=== PATIENT | male | born 1960 | race African-American/Black ===

== ENCOUNTER → 2017-03-18 | Outpatient (CLI) | payer BC ==
[2014-12-05 08:25] VITALS: BP 143/77
== END ==
LOC: RT 09:43
PROVIDERS: ATTEND Psychiatry & Neurology Neurology
DX: M25.561 Pain in right knee (principal)
CPT/HCPCS: 95909

== ENCOUNTER 2017-05-30 01:44 | Emergency (ER) | payer BC ==
[2017-05-30] MEDS ORDERED: NS 1000 ML 3,000 ML ONE (01:47)
[2017-05-30] MEDS: NS 1000 ML 1,000 ML IV PRN ×3 (02:00→02:10)
[2017-05-30] MEDS ORDERED: NS 100 ML IV 100 ML IV ONE (02:05)
[2017-05-30 02:07] LABS: BILIRUBIN,URINE NEGATIVE (NEGATIVE); BLOOD/HEMOGLOBIN,URINE 2+ (NEGATIVE); GLUCOSE, URINE NEGATIVE (NEGATIVE); KETONES,URINE NEGATIVE (NEGATIVE); LEUKOCYTE ESTERASE ,URINE 1+ (NEGATIVE); NITRITES,URINE NEGATIVE (NEGATIVE); PROTEIN,URINE 2+ (NEGATIVE); UROBILINOGEN,URINE 1+ (NORMAL)
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
[2017-05-30 02:29] LABS: AMORPHOUS SEDIMENT,UR TRACE /HPF (NEGATIVE); APPEARANCE,URINE HAZY (CLEAR); BACTERIA,URINE NEGATIVE /HPF (NEGATIVE); COLOR,URINE YELLOW (YELLOW); RBC,URINE 0-3 /HPF (NEGATIVE); SQUAMOUS EPITHELIAL CELL,UR FEW /HPF (NEGATIVE)
[2017-05-30] MEDS ORDERED: ALBUMIN HUMAN 25%- 100ML 100 ML IV ONE ×2 (02:31→03:00)
[2017-05-30 02:35] LABS: BASOPHILS % (AUTO) 0.6 % (0.2-1.0); EOSINOPHILS # (AUTO) 0.1 x10^3/uL (0.0-0.2); EOSINOPHILS % (AUTO) 1.9 % (0.9-2.9); HEMATOCRIT 26.8 % (42.0-54.0); HEMOGLOBIN 9.1 g/dL (13.5-18.0); LYMPHOCYTES # (AUTO) 2.5 X10^3/uL (1.3-2.9); MEAN CORPUSCULAR HEMOGLOBIN 29.4 pg (27.0-34.0); MEAN CORPUSCULAR VOLUME 86.4 fL (80.0-100.0); MEAN PLATELET VOLUME 8.5 fL (7.4-11.0); MONOCYTES # (AUTO) 0.4 x10^3/uL (0.3-0.8); MONOCYTES % (AUTO) 5.8 % (0.0-13.0); NEUTROPHILS # (AUTO) 4.3 x10^3/uL (2.2-4.8); NEUTROPHILS % (AUTO) 57.7 % (42.0-75.0); PLATELET COUNT 173 X10^3/uL (150.0-450.0); RED CELL DISTRIBUTION WIDTH 14.5 % (11.6-16.5); WHITE BLOOD COUNT 7.5 X10^3/uL (3.6-10.0)
[2017-05-30 02:38] LABS: CALCIUM 7.4 mg/dL (8.5-10.1); CARBON DIOXIDE 18.2 mmol/L (21-32); CREATININE 1.65 mg/dL (0.70-1.30)
[2017-05-30 02:40] VITALS: BMI 33.3
[2017-05-30 02:42] LABS: ALBUMIN 2.5 g/dL (3.4-5.0); COR CA(FOR HYPOALB) 8.6 mg/dL (8.5-10.1); TOTAL PROTEIN 5.1 g/dL (6.4-8.2)
[2017-05-30] MEDS ORDERED: ALBUMIN IV SCH (03:00)
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
[2017-05-30] MEDS ORDERED: XYLOCAINE 2% and EPINEPHRINE 1:100,000 ONE (03:35)
[2017-05-30] MEDS ORDERED: STERILE WATER IRRIGATION IR ONE (03:37)
[2017-05-30] MEDS ORDERED: MORPHINE SULFATE INJ 4 MG IVP ONE (04:00)
[2017-05-30] MEDS ORDERED: K-DUR TAB 20 MEQ PO ONE ×2 (04:09→04:12)
--- NOTE | 2017-05-30 04:49 | RAD ---
AP Chest Indication: Chest tube placement Comparison: None available Findings: Nasogastric tube is noted in expected positioning with its tip below the diaphragm. The left-sided th oracostomy tube is difficult to visualize the tip. Consider repeat radiographic evaluation. The trachea is midline. The cardiac silhouette is unremarkable. there is mild increased bilateral p eribronchial thickening which may be secondary to vascular crowding versus developing interstitial pn eumonitis. The bony thorax is unremarkable. IMPRESSION: See above. Reported By:
[2017-05-30 04:59] VITALS: BP 168/74
[2017-05-30 10:47] LABS: ABG ALLEN TEST POS; ABG BASE EXCESS -4.7 mmol/L (-2.0-2.0); ABG HCO3 20.4 mmol/L (22-26)
== END 2017-05-30 05:00 | disposition short-term general hospital (02) ==
LOC: ER 01:44
DX: S21.112A Laceration without foreign body of left front wall of thorax without penetration into thoracic cavity, initial encounter (principal); J93.9 Pneumothorax, unspecified; E87.6 Hypokalemia; Y08.89XA Assault by other specified means, initial encounter; Y92.9 Unspecified place or not applicable
CPT/HCPCS: 36415; 36600; 51702; 71010; 71260; 74177; 80053; 80307; 81001; 82803; 85025; 86901; 93005; 93010; 96365; 96367; 96374; 96375; 99284; 99291; 99292; A4217; A4222; P9045; P9047; G0434; J2001; J2270

== ENCOUNTER 2017-11-25 11:59 | Emergency (ER) | payer BC ==
[2017-11-25 12:09] VITALS: BP 113/65; BMI 30.4
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
[2017-11-25 12:52] LABS: BASOPHILS % (AUTO) 0.6 % (0.2-1.0); HEMATOCRIT 37.9 % (42.0-54.0); HEMOGLOBIN 12.8 g/dL (13.5-18.0); LYMPHOCYTES # (AUTO) 0.8 X10^3/uL (1.3-2.9); LYMPHOCYTES % (AUTO) 37.4 % (21.0-51.0); MEAN CORPUSCULAR HEMOGLOBIN 26.9 pg (27.0-34.0); MEAN CORPUSCULAR HGB CONC 33.9 g/dL (33.0-35.0); MEAN CORPUSCULAR VOLUME 79.4 fL (80.0-100.0); MEAN PLATELET VOLUME 7.7 fL (7.4-11.0); MONOCYTES # (AUTO) 0.2 x10^3/uL (0.3-0.8); MONOCYTES % (AUTO) 9.5 % (0.0-13.0); NEUTROPHILS # (AUTO) 1.1 x10^3/uL (2.2-4.8); NEUTROPHILS % (AUTO) 52.5 % (42.0-75.0); PLATELET COUNT 148 X10^3/uL (150.0-450.0); RED BLOOD COUNT 4.77 X10^6/uL (4.7-6.0); RED CELL DISTRIBUTION WIDTH 18.6 % (11.6-16.5); WHITE BLOOD COUNT 2.2 X10^3/uL (3.6-10.0)
[2017-11-25 13:03] LABS: ALANINE AMINOTRANSFERASE 24 Units/L (12-78); ALBUMIN 3.3 g/dL (3.4-5.0); ALKALINE PHOSPHATASE 82 Units/L (46-116); ASPARTATE AMINO TRANSFERASE 32 Units/L (15-37); BLOOD UREA NITROGEN 20 mg/dL (7-18); CALCIUM 8.4 mg/dL (8.5-10.1); CHLORIDE 101 mmol/L (98-107); CREATININE 1.46 mg/dL (0.70-1.30); SODIUM 134 mmol/L (136-145); TOTAL PROTEIN 7.9 g/dL (6.4-8.2); eGFR BLACK RACES > 60 (>60); eGFR NON BLACK RACES 53 (>60)
[2017-11-25 13:12] LABS: PLATELET MORPHOLOGY COMMENT NORMAL (NORMAL)
== END 2017-11-25 14:08 | disposition home or self-care (01) ==
LOC: ER 12:14
DX: J10.1 Influenza due to other identified influenza virus with other respiratory manifestations (principal)
CPT/HCPCS: 36415; 80053; 85025; 87502; 87651; 99282

== ENCOUNTER 2021-08-09 03:08 | Observation (INO) ==
[2021-08-09 03:24] VITALS: BMI 30.6
--- NOTE | 2021-08-09 03:32 | DR.SOBA ---
HPI Time Seen Time Seen by Provider: 08/09/21 03:28 Primary Care Physician Primary Care Physician: Cherri ward HPI Comment HPI Comment: Cough, congestion and sob for the past week; acutely worsened tonight; has a "sore spot" in center of chest but denies other cp; no fever, chills; he has had both covid vaccines; he smokes 2ppd and denies h/o heart disease but was recently referred to behavioral sciences instructor after a bout with what "they thought was a heart attack; he's taking medications as written; no abd pain, n/v/d. Complaints Chief Complaint:: pt stated he has been short a breath for about a week an tonig ht it started getting worse. Source History Provided: Patient Mode of Arrival Mode of Arrival: Ambulatory Timing Onset of Chief Complaint: 08/05/21 PMH PMH Past Medical History: Yes Past Medical History: Hypertension Past Surgical History: Yes Surgical History: Appendectomy Past Surgical History Comment: colon repair Family History History of Family Medical Conditions: Yes Family Medical History: Diabetes Mellitus and Hypertension Social History Do you use any recreational Drugs:: No Lives With: Spouse Lives Where: Home Infectious screening In the last 2 months have you had wt loss of >10#?: NO Have you had fever, night sweats or hemotysis?: No Have you traveled outside the country in the last 6 months?: No Isolation: Standard ROS Review of Systems Constitutional: No Symptoms Reported Eyes: No Symptoms Reported ENTM: No Symptoms Reported Gastrointestinal/Abdominal: No Symptoms Reported Genitourinary: No Symptoms Reported Neurological: No Symptoms Reported Musculoskeletal: No Symptoms Reported Integumentary: No Symptoms Reported Hematologic/Lymphatic: No Symptoms Reported Endocrine: No Symptoms Reported Psychiatric: No Symptoms Reported PE Vital Signs Vitals: Temperature 97.7 F Pulse Rate [Left Brachial] 94 Pulse Rate 85 Respiratory Rate 25 Blood Pressure [Right Arm] 141/77 Blood Pressure 158/74 O2 Sat by Pulse Oximetry 98 General Limitations: No Limitations General Appearance: Alert and In No Apparent Distress Head Head Exam: Normal Inspection Eyes Eye exam: Normal Appearance ENT ENT Exam: Normal Exam Neck Neck Exam: Normal Inspection Chest Chest Inspection: Normal Inspection and Tenderness (over xyphoid process) Respiratory Respiratory Exam: Normal Lung Sounds Bilat Respiratory Exam: Bilateral: Rales, Left: Rales, Right: Rales and Lower: Rales Cardiovascular Cardiovascular Exam: Regular Rate and Normal Rhythm Abdominal Exam Abdominal Exam: Normal Inspection, Normal Bowel Sounds and Soft Extremities Extremities Exam: Normal Inspection Back Back Exam: Normal Inspection Neurologic Neurological Exam: Alert and Oriented X3 Psychiatric Psychiatric Exam: Normal Affect and Normal Mood Skin Skin Exam: Warm, Dry, Intact and Normal Color COURSE Treatment Treatment: 0700 out 2550 cc with lasix, sleeping soundly, wakes partially; says feeling better Critical Care Notes Total Time (mins): 30 Critical Diagnosis: chf, mult pvc, st, hypoxia, high d-dimer, hypokalemia, uncontrolled htn Critical Interventions: oxygen, lasix, strict I/Os discussion with pt and pcp results of labs/xray and need for admission admission for diuresis ROR Labs Reviewed Laboratory Results Reviewed?: Yes Result Diagrams: 08/09/21 03:41 08/09/21 03:41 Laboratory: WBC 6.8 X10^3/uL (3.6-10.0) 08/09/21 03:41 RBC 4.08 X10^6/uL (4.7-6.0) L 08/09/21 03:41 Hgb 11.9 g/dL (13.5-18.0) L 08/09/21 03:41 Hct 35.2 % (42.0-54.0) L 08/09/21 03:41 MCV 86.3 fL (80.0-100.0) 08/09/21 03:41 MCH 29.0 pg (27.0-34.0) 08/09/21 03:41 MCHC 33.6 g/dL (33.0-35.0) 08/09/21 03:41 RDW 15.0 % (11.6-16.5) 08/09/21 03:41 Plt Count 239 X10^3/uL (150.0-450.0) 08/09/21 03:41 MPV 8.9 fL (7.4-11.0) 08/09/21 03:41 Neut % (Auto) 69.2 % (42.0-75.0) 08/09/21 03:41 Lymph % (Auto) 21.9 % (21.0-51.0) 08/09/21 03:41 [place] % (Auto) 6.8 % (0.0-13.0) 08/09/21 03:41 Eos % (Auto) 0.9 % (0.9-2.9) 08/09/21 03:41 Baso % (Auto) 1.2 % (0.2-1.0) H 08/09/21 03:41 Neut # (Auto) 4.7 x10^3/uL (2.2-4.8) 08/09/21 03:41 Lymph # (Auto) 1.5 X10^3/uL (1.3-2.9) 08/09/21 03:41 [place] # (Auto) 0.5 x10^3/uL (0.3-0.8) 08/09/21 03:41 Eos # (Auto) 0.1 x10^3/uL (0.0-0.2) 08/09/21 03:41 Baso # (Auto) 0.1 X10^3/uL (0.0-0.1) 08/09/21 03:41 Absolute Nucleated RBC 0.2 /100WBC 08/09/21 03:41 D-Dimer 1.66 ug/ml (0.0-0.57) H* 08/09/21 03:41 Sample Site Rrad 08/09/21 03:49 ABG pH 7.460 (7.35-7.45) H 08/09/21 03:49 ABG pCO2 37.0 mmHg (35.0-45.0) 08/09/21 03:49 ABG pO2 63.0 mmHg (80.0-100.0) L 08/09/21 03:49 ABG HCO3 26.3 mmol/L (22-26) H 08/09/21 03:49 ABG O2 Saturation 93.0 % (90-100) 08/09/21 03:49 ABG Base Excess 2.5 mmol/L (-2.0-2.0) H 08/09/21 03:49 Pankaj Test Pos 08/09/21 03:49 A-a Gradient 40.0 mmHg 08/09/21 03:49 FiO2 21.0 08/09/21 03:49 Blood Gas Comments Tory well ms 08/09/21 03:49 Sodium 143 mmol/L (136-145) 08/09/21 03:41 Corrected Sodium TNP 08/09/21 03:41 Potassium 3.2 mmol/L (3.5-5.1) L 08/09/21 03:41 Chloride 108 mmol/L (98-107) H 08/09/21 03:41 Carbon Dioxide 25.8 mmol/L (21-32) 08/09/21 03:41 BUN 9 mg/dL (7-18) 08/09/21 03:41 Creatinine 1.05 mg/dL (0.70-1.30) 08/09/21 03:41 Est GFR (MDRD) Af Amer > 60 (>60) 08/09/21 03:41 Est GFR (MDRD) Non-Af > 60 (>60) 08/09/21 03:41 Glucose 100 mg/dL (65-99) H 08/09/21 03:41 Calcium 8.4 mg/dL (8.5-10.1) L 08/09/21 03:41 Corrected Calcium TNP 08/09/21 03:41 Total Bilirubin 0.60 mg/dL (0.2-1.0) 08/09/21 03:41 AST 22 Units/L (15-37) 08/09/21 03:41 ALT 25 Units/L (12-78) 08/09/21 03:41 Alkaline Phosphatase 86 Units/L (46-116) 08/09/21 03:41 Creatine Kinase 147 Units/L (39-308) 08/09/21 03:41 CK-MB (CK-2) 1.1 ng/mL (0-4.0) 08/09/21 03:41 CK/CKMB % Calc 0.8 % (<4) 08/09/21 03:41 Troponin I 0.04 ng/mL (0-1.5) 08/09/21 03:41 B-Natriuretic Peptide 1490 pg/mL (0-79) H* 08/09/21 03:41 Total Protein 7.6 g/dL (6.4-8.2) 08/09/21 03:41 Albumin 3.4 g/dL (3.4-5.0) 08/09/21 03:41 Globulin 4.2 g/dL (2.5-4.5) 08/09/21 03:41 Albumin/Globulin Ratio 0.8 Ratio (1.1-2.1) L 08/09/21 03:41 SARS CoV-2 RNA Rapid STEPHANIE Negative (NEGATIVE) 08/09/21 04:20 XRAY XRAY Interpreted by: Radiologist X-ray Results: pcxr: Congestive heart failure. Opioid Opioid Risk Tool Age (David box if 16-45): No History of Preadolescent Sexual Abuse: No Total: 0 Total Score Risk Category: Low Risk Copyright: Payne LR predicting aberrant behaviors Diagnosis Discharge Problem: Hypoxia, Hypokalemia, Frequent PVCs CHF (congestive heart failure) Qualifiers: Heart failure type: unspecified Heart failure chronicity: acute Qualified Code(s): I50.9 - Heart failure, unspecified Hypertension Qualifiers: Hypertension type: primary hypertension Qualified Code(s): I10 - Essential (primary) hypertension Instructions Instructions: Hypoxia Forms: [facility] Patient [facility] Social Distancing
--- NOTE | 2021-08-09 03:48 | RAD ---
PROCEDURE: Chest X-ray 1 View .HISTORY: Dyspnea for 1 week.TECHNIQUE: AP view .COMPARISON: 06/11/2021.TECHNICAL QUALITY: Satisfactory .FINDINGS:Unchanged cardiomegaly.Increased central vascularity.Some edema in both mid lower lung martinez with no pleural fluid.IMPRESSION:Congestive heart failure.Electronically signed by: Olman Patel (Aug 09, 2021 03:46:32)
[2021-08-09 03:51] LABS: ABG ALLEN TEST POS; ABG BASE EXCESS 2.5 mmol/L (-2.0-2.0); ABG HCO3 26.3 mmol/L (22-26)
[2021-08-09] MEDS ORDERED: LASIX IVP ONE ×3 (04:03→07:48)
[2021-08-09 04:23] LABS: ALANINE AMINOTRANSFERASE 25 Units/L (12-78); ALBUMIN 3.4 g/dL (3.4-5.0); ALKALINE PHOSPHATASE 86 Units/L (46-116); ASPARTATE AMINO TRANSFERASE 22 Units/L (15-37); BLOOD UREA NITROGEN 9 mg/dL (7-18); CALCIUM 8.4 mg/dL (8.5-10.1); CARBON DIOXIDE 25.8 mmol/L (21-32); CHLORIDE 108 mmol/L (98-107); CKMB % 0.8 % (<4); CREATINE KINASE 147 Units/L (39-308); CREATINE KINASE MB 1.1 ng/mL (0-4.0); CREATININE 1.05 mg/dL (0.70-1.30); SODIUM 143 mmol/L (136-145); TOTAL PROTEIN 7.6 g/dL (6.4-8.2); TROPONIN I 0.04 ng/mL (0-1.5); eGFR NON BLACK RACES > 60 (>60)
[2021-08-09 04:27] LABS: BASOPHILS # (AUTO) 0.1 X10^3/uL (0.0-0.1); BASOPHILS % (AUTO) 1.2 % (0.2-1.0); EOSINOPHILS # (AUTO) 0.1 x10^3/uL (0.0-0.2); EOSINOPHILS % (AUTO) 0.9 % (0.9-2.9); HEMATOCRIT 35.2 % (42.0-54.0); HEMOGLOBIN 11.9 g/dL (13.5-18.0); LYMPHOCYTES # (AUTO) 1.5 X10^3/uL (1.3-2.9); LYMPHOCYTES % (AUTO) 21.9 % (21.0-51.0); MEAN CORPUSCULAR HGB CONC 33.6 g/dL (33.0-35.0); MEAN CORPUSCULAR VOLUME 86.3 fL (80.0-100.0); MEAN PLATELET VOLUME 8.9 fL (7.4-11.0); MONOCYTES # (AUTO) 0.5 x10^3/uL (0.3-0.8); MONOCYTES % (AUTO) 6.8 % (0.0-13.0); NEUTROPHILS # (AUTO) 4.7 x10^3/uL (2.2-4.8); NEUTROPHILS % (AUTO) 69.2 % (42.0-75.0); PLATELET COUNT 239 X10^3/uL (150.0-450.0); RED BLOOD COUNT 4.08 X10^6/uL (4.7-6.0); WHITE BLOOD COUNT 6.8 X10^3/uL (3.6-10.0)
[2021-08-09] MEDS ORDERED: K-DUR TAB 20 MEQ PO STA (05:47)
[2021-08-09] MEDS ORDERED: K-DUR TAB 20 MEQ PO ONE ×2 (05:49→07:48)
[2021-08-09] MEDS: LASIX IVP SCH (07:59)
[2021-08-09] MEDS: K-DUR TAB 20 MEQ PO SCH (07:59)
[2021-08-09] MEDS ORDERED: TOPROL XL PO SCH (09:00)
--- NOTE | 2021-08-09 09:47 | CT ---
HISTORYHYPOXIA, PVC, TROUBLE BREATHINGSTUDYCTA CHESTCOMPARISONChest radiograph from same day.TECHNIQUECTA chest protocol with axial images from the thoracic inlet to upper abdomen with IV contrast. Sagittal and coronal reformats and MIP images were created. Automated exposure control was utilized.FINDINGSThe visualized thyroid gland appears benign. Mildly atherosclerotic normal caliber thoracic aorta. Pulmonary artery is normal in caliber centrally. No filling defect is identified to suggest pulmonary embolism. The heart is mildly enlarged. No pericardial effusion.No pathologic adenopathy in the thorax. 6.3 cm left upper pole renal cyst. No acute osseous abnormality. The trachea and mainstem bronchi appear patent. There are mild lower lung predominant ground-glass and interstitial opacities likely due to pulmonary edema. Small bilateral pleural effusions. No pneumothorax. 4 x 2 mm left upper lobe pulmonary nodule image 49 series 2. 3 x 2 mm right lower lobe pulmonary nodule image 86 series 5.IMPRESSIONNegative for PE. Mild cardiomegaly. Mild pulmonary edema pattern. Small pleural effusions.There are few less than 6 mm pulmonary nodules which can be followed up in 1 year patient is high risk.Electronically signed by: Daryl Sorensen (Aug 09, 2021 09:45:42)
--- NOTE | 2021-08-09 10:06 | DR.H&P ---
H&P History & Physical for Day of: H&P Date: 08/09/21 Chief Complaint Chief Complaint: Shortness of breath Cough, congestion Allergies Allergies Allergy/AdvReac Type Severity Reaction Status Date / Time No Known Drug Allergies Allergy Verified 09/06/19 09:27 History of Present Illness History of Present Illness: Pt is a 60 year old male past medical history of H ypertension, Hyperlipidemia, COPD, presenting after having cough, congestion, and shortness of breath for the past week. Denies fever, chills. Labs/imaging: Wbc 6.8, Hgb 11.9, Plt 239, Na 143, K 3.2, Creatinine 1.05, Glucose 100, D-dimer 1.66, ABG: pH 7.46, pCO2 37, pO2 63, HCO3 26, O2sat 93%, FiO2 21%, BNP 1490, Troponin 0.04, COVID-19 negative, CXR was obtained that revealed: Increased central vascularity. Some edema in both mid lower lung martinez with no pleural fluid. Due to elevated D-dimer CTA chest was obtained that revealed: Negative for PE. Mild cardiomegaly. Mild pulmonary edema pattern. Small pleural effusions. There are few less than 6 mm pulmonary nodules which can be followed up in 1 year patient is high risk. Pt was given IV lasix 40mg and has had good urine output of 2550 cc. Will treat CHF exacerbation with IV lasix 40mg daily. Pt has had Echo in 2019 with EF of 65%, will repeat Echo today. Replete potassium per protocol. Restart home medications. Will continue to monitor and follow up labs/imaging. Past Medical History Past Medical History: Hypertension Past Surgical History Surgical History: Appendectomy Family History Family Medical History: Diabetes Mellitus and Hypertension Social History Does patient currently use any type of tobacco product: Yes Have you used tobacco products in the last 12 months: Yes Type of Tobacco Use: Cigarettes Alcohol Use: None Drug Use: None Medications Home Medications: No Known Drug Allergies Allergy (Verified 09/06/19 09:27) CONTINUE taking the following medications aspirin [Aspir-81] 81 mg PO DAILY 08/09/21 [History] esomeprazole magnesium 20 mg PO DAILY 08/09/21 [History] fentanyl 25 mcg TRANSDERMAL Q3D 08/09/21 [History] furosemide 20 mg PO DAILY 08/09/21 [History] metoprolol succinate 25 mg PO DAILY 08/09/21 [History] tizanidine 2 mg PO QHS PRN 08/09/21 [History] tramadol 50 mg PO BID 08/09/21 [History] Labs Result Diagrams: 08/09/21 03:41 08/09/21 03:41 Labs: Laboratory WBC 6.8 X10^3/uL (3.6-10.0) 08/09/21 03:41 RBC 4.08 X10^6/uL (4.7-6.0) L 08/09/21 03:41 Hgb 11.9 g/dL (13.5-18.0) L 08/09/21 03:41 Hct 35.2 % (42.0-54.0) L 08/09/21 03:41 MCV 86.3 fL (80.0-100.0) 08/09/21 03:41 MCH 29.0 pg (27.0-34.0) 08/09/21 03:41 MCHC 33.6 g/dL (33.0-35.0) 08/09/21 03:41 RDW 15.0 % (11.6-16.5) 08/09/21 03:41 Plt Count 239 X10^3/uL (150.0-450.0) 08/09/21 03:41 MPV 8.9 fL (7.4-11.0) 08/09/21 03:41 Neut % (Auto) 69.2 % (42.0-75.0) 08/09/21 03:41 Lymph % (Auto) 21.9 % (21.0-51.0) 08/09/21 03:41 [place] % (Auto) 6.8 % (0.0-13.0) 08/09/21 03:41 Eos % (Auto) 0.9 % (0.9-2.9) 08/09/21 03:41 Baso % (Auto) 1.2 % (0.2-1.0) H 08/09/21 03:41 Neut # (Auto) 4.7 x10^3/uL (2.2-4.8) 08/09/21 03:41 Lymph # (Auto) 1.5 X10^3/uL (1.3-2.9) 08/09/21 03:41 [place] # (Auto) 0.5 x10^3/uL (0.3-0.8) 08/09/21 03:41 Eos # (Auto) 0.1 x10^3/uL (0.0-0.2) 08/09/21 03:41 Baso # (Auto) 0.1 X10^3/uL (0.0-0.1) 08/09/21 03:41 Absolute Nucleated RBC 0.2 /100WBC 08/09/21 03:41 D-Dimer 1.66 ug/ml (0.0-0.57) H* 08/09/21 03:41 Sample Site Rrad 08/09/21 03:49 ABG pH 7.460 (7.35-7.45) H 08/09/21 03:49 ABG pCO2 37.0 mmHg (35.0-45.0) 08/09/21 03:49 ABG pO2 63.0 mmHg (80.0-100.0) L 08/09/21 03:49 ABG HCO3 26.3 mmol/L (22-26) H 08/09/21 03:49 ABG O2 Saturation 93.0 % (90-100) 08/09/21 03:49 ABG Base Excess 2.5 mmol/L (-2.0-2.0) H 08/09/21 03:49 Pankaj Test Pos 08/09/21 03:49 A-a Gradient 40.0 mmHg 08/09/21 03:49 FiO2 21.0 08/09/21 03:49 Blood Gas Comments Tory well ms 08/09/21 03:49 Sodium 143 mmol/L (136-145) 08/09/21 03:41 Corrected Sodium TNP 08/09/21 03:41 Potassium 3.2 mmol/L (3.5-5.1) L 08/09/21 03:41 Chloride 108 mmol/L (98-107) H 08/09/21 03:41 Carbon Dioxide 25.8 mmol/L (21-32) 08/09/21 03:41 BUN 9 mg/dL (7-18) 08/09/21 03:41 Creatinine 1.05 mg/dL (0.70-1.30) 08/09/21 03:41 Est GFR (MDRD) Af Amer > 60 (>60) 08/09/21 03:41 Est GFR (MDRD) Non-Af > 60 (>60) 08/09/21 03:41 Glucose 100 mg/dL (65-99) H 08/09/21 03:41 Calcium 8.4 mg/dL (8.5-10.1) L 08/09/21 03:41 Corrected Calcium TNP 08/09/21 03:41 Total Bilirubin 0.60 mg/dL (0.2-1.0) 08/09/21 03:41 AST 22 Units/L (15-37) 08/09/21 03:41 ALT 25 Units/L (12-78) 08/09/21 03:41 Alkaline Phosphatase 86 Units/L (46-116) 08/09/21 03:41 Creatine Kinase 147 Units/L (39-308) 08/09/21 03:41 CK-MB (CK-2) 1.1 ng/mL (0-4.0) 08/09/21 03:41 CK/CKMB % Calc 0.8 % (<4) 08/09/21 03:41 Troponin I 0.04 ng/mL (0-1.5) 08/09/21 03:41 B-Natriuretic Peptide 1490 pg/mL (0-79) H* 08/09/21 03:41 Total Protein 7.6 g/dL (6.4-8.2) 08/09/21 03:41 Albumin 3.4 g/dL (3.4-5.0) 08/09/21 03:41 Globulin 4.2 g/dL (2.5-4.5) 08/09/21 03:41 Albumin/Globulin Ratio 0.8 Ratio (1.1-2.1) L 08/09/21 03:41 SARS CoV-2 RNA Rapid STEPHANIE Negative (NEGATIVE) 08/09/21 04:20 Review of Systems Constitutional: Weakness; denies Fever and Chills Eyes: No Symptoms Reported ENT: No Symptoms Reported Respiratory: Cough and Shortness of Breath Cardiovascular: No Symptoms Reported Gastrointestinal: No Symptoms Reported Genitourinary: No Symptoms Reported Musculoskeletal: No Symptoms Reported Skin: No Symptoms Reported Neurological: No Symptoms Reported Physical Exam Vital Signs: Temperature 97.7 F Pulse Rate [Left Brachial] 94 Pulse Rate 96 Respiratory Rate 33 Blood Pressure [Right Arm] 141/77 Blood Pressure 134/95 O2 Sat by Pulse Oximetry 98 Oriented: Normal Eyes: Normal Ear: Normal Nose: Normal Throat: Normal Respiratory: Diminished Throughout and Rales Throughout Cardiovascular: Normal : Normal Auscultation: Bowel Sounds: Normal Palpation: Normal Tenderness: Normal Skin: Normal Musculoskeletal: Normal Psychiatric: Normal Mood Description: Calm and Appropriate Affect: Normal Speech Pattern: Clear and Appropriate Assessment/Plan (1) CHF exacerbation: Status: Acute Plan: IV lasix 40mg daily. Repeat Echo. Review H&P Reviewed: Yes Patient was examined?: Yes
[2021-08-09] MEDS ORDERED: NORCO 10/325 TAB PO PRN (11:22)
[2021-08-09] MEDS ORDERED: NexIUM PO SCH (11:30)
[2021-08-09] MEDS: ASPIRIN EC 81 MG PO SCH (11:46)
[2021-08-09] MEDS: TOPROL XL PO SCH (11:47)
[2021-08-09] MEDS ORDERED: VASOTEC TAB 20 MG ONE (12:00)
[2021-08-09] MEDS ORDERED: NORVASC TAB 10 MG ONE (12:00)
[2021-08-09] MEDS: NORVASC TAB 10 MG PO SCH (12:12)
[2021-08-09] MEDS: VASOTEC TAB 20 MG PO SCH (12:12)
[2021-08-09 13:04] LABS: BLOOD UREA NITROGEN 9 mg/dL (7-18); CALCIUM 9.2 mg/dL (8.5-10.1); CARBON DIOXIDE 30.5 mmol/L (21-32); CHLORIDE 105 mmol/L (98-107); CKMB % 0.6 % (<4); CREATINE KINASE 158 Units/L (39-308); CREATININE 1.18 mg/dL (0.70-1.30); MAGNESIUM 1.9 mg/dL (1.7-2.9); SODIUM 142 mmol/L (136-145); TROPONIN I 0.02 ng/mL (0-1.5); eGFR NON BLACK RACES > 60 (>60)
[2021-08-09] MEDS: NexIUM PO SCH (15:36)
[2021-08-09 18:56] LABS: CKMB % 0.6 % (<4); CREATINE KINASE 156 Units/L (39-308); CREATINE KINASE MB < 1.0 ng/mL (0-4.0); TROPONIN I < 0.02 ng/mL (0-1.5)
[2021-08-09] MEDS: COLACE CAP 100 MG PO SCH ×2 (20:04→20:48)
[2021-08-09] MEDS ORDERED: LIPITOR TAB 20 MG PO SCH (21:00)
[2021-08-10 05:21] LABS: BASOPHILS % (AUTO) 0.3 % (0.2-1.0); EOSINOPHILS # (AUTO) 0.1 x10^3/uL (0.0-0.2); EOSINOPHILS % (AUTO) 1.9 % (0.9-2.9); HEMATOCRIT 34.9 % (42.0-54.0); HEMOGLOBIN 11.7 g/dL (13.5-18.0); LYMPHOCYTES % (AUTO) 33.9 % (21.0-51.0); MEAN CORPUSCULAR HEMOGLOBIN 28.9 pg (27.0-34.0); MEAN CORPUSCULAR HGB CONC 33.7 g/dL (33.0-35.0); MEAN CORPUSCULAR VOLUME 85.7 fL (80.0-100.0); MEAN PLATELET VOLUME 9.3 fL (7.4-11.0); MONOCYTES # (AUTO) 0.4 x10^3/uL (0.3-0.8); MONOCYTES % (AUTO) 6.9 % (0.0-13.0); NEUTROPHILS # (AUTO) 3.4 x10^3/uL (2.2-4.8); PLATELET COUNT 247 X10^3/uL (150.0-450.0); RED BLOOD COUNT 4.07 X10^6/uL (4.7-6.0); RED CELL DISTRIBUTION WIDTH 15.1 % (11.6-16.5); WHITE BLOOD COUNT 5.9 X10^3/uL (3.6-10.0)
[2021-08-10 05:31] LABS: ALANINE AMINOTRANSFERASE 21 Units/L (12-78); ALBUMIN 2.9 g/dL (3.4-5.0); ALKALINE PHOSPHATASE 80 Units/L (46-116); ASPARTATE AMINO TRANSFERASE 18 Units/L (15-37); BLOOD UREA NITROGEN 12 mg/dL (7-18); CALCIUM 8.6 mg/dL (8.5-10.1); CARBON DIOXIDE 29.7 mmol/L (21-32); CHLORIDE 105 mmol/L (98-107); COR CA(FOR HYPOALB) 9.5 mg/dL (8.5-10.1); CREATININE 1.18 mg/dL (0.70-1.30); MAGNESIUM 1.8 mg/dL (1.7-2.9); SODIUM 143 mmol/L (136-145); eGFR NON BLACK RACES > 60 (>60)
[2021-08-10] MEDS ORDERED: POTASSIUM CHL 40 MEQ/NS 0.45% 500 ML IV PRN (05:51)
[2021-08-10] MEDS ORDERED: MICRO K EXTEN CAP 10 MEQ PO PRN (05:51)
[2021-08-10] MEDS ORDERED: POTASSIUM CHL 60 MEQ/NS 0.45% 500 ML IV PRN (05:51)
[2021-08-10] MEDS ORDERED: K-RIDER 10 MEQ/NS 100 ML 10 MEQ/100 ML BAG IV PRN (05:51)
[2021-08-10] MEDS ORDERED: K-DUR TAB 20 MEQ PO PRN (05:51)
[2021-08-10] MEDS ORDERED: POTASSIUM CHLORIDE LIQ 20 MEQ UDC PO PRN (05:51)
[2021-08-10] MEDS ORDERED: KLOR-CON PO PRN (05:51)
[2021-08-10] MEDS ORDERED: MAGNESIUM SULFATE 1 GRAM/100 mL PREMIX 1 G/100 ML BAG IV ONE (06:02)
[2021-08-10] MEDS: MAGNESIUM SULFATE 1 GRAM/100 mL PREMIX 1 G/100 ML BAG IV PRN ×2 (06:12→08:10)
[2021-08-10] MEDS: TOPROL XL PO SCH (09:35)
[2021-08-10] MEDS: K-DUR TAB 20 MEQ PO SCH (09:35)
[2021-08-10] MEDS: VASOTEC TAB 20 MG PO SCH (09:35)
[2021-08-10] MEDS: NORVASC TAB 10 MG PO SCH (09:35)
[2021-08-10] MEDS: NexIUM PO SCH (09:35)
[2021-08-10] MEDS: LASIX IVP SCH (09:35)
[2021-08-10] MEDS: ASPIRIN EC 81 MG PO SCH (09:35)
[2021-08-10 13:28] LABS: MAGNESIUM 2.2 mg/dL (1.7-2.9)
[2021-08-10 16:38] VITALS: BP 129/63
== END 2021-08-10 13:55 | disposition home or self-care (01) ==
LOC: ER 03:14 → MED/SURG 03:14
PROVIDERS: ADMIT Family Medicine; ATTEND Family Medicine
DX: J44.9 Chronic obstructive pulmonary disease, unspecified; J90 Pleural effusion, not elsewhere classified; E78.2 Mixed hyperlipidemia; R09.02 Hypoxemia; Z20.822 Contact with and (suspected) exposure to COVID-19; R06.02 Shortness of breath; I50.9 Heart failure, unspecified; I11.0 Hypertensive heart disease with heart failure; E87.6 Hypokalemia